=== PATIENT | male | born 1955 | race Caucasian/White ===

== ENCOUNTER 2016-11-16 12:00 | Emergency (ER) | payer BC ==
[2016-11-16 13:52] VITALS: BP 116/69
--- NOTE | 2016-11-16 14:04 | UC ---
Angela Mendoza SooYoung, scribed for [facility] on 11/16/16 at 1248 . Palpitation/Dysrhythmia HP - HPI Summary HPI Summary: NOTE: Pt presents with SVT arrhythmia, worse with movement. Vital signs stable. Pulse is 67, regular. No pain. Resting comfortably at 1305. Non-smoker. Hx: SVT, episodes of dizziness, appy in 2010. Pt is on no prescription medications. Pt has been examined with a holter monitor for palpitations on 11/08/16 showing few rungs of PSVT, max 5 beats. This complaint is shown in the visit hx on 05/29/12. On 10/14/12, NSR was shown with rare PACs and symptoms of flutter correspond to NSR, no sustained arrhym. IN ROOM NOTE: A 61 y/o M presents to [facility] with multiple episodes of rapid cardiac palpitations occurring this AM and yesterday. He states he was unable to stop it, it lasted 5 -10 minutes, and racing occurred again this AM. Pt states he's been careful to avoid strenuous activity, caffeine. Associated sx: mild BARRETT. Denies: syncope, LOC. Pert PMHx: Premature atrial contractions in 2012 possibly caused due to stress, sx then included mild lightheadedness. He states this time feels different. Between 2012 and now, he had a few episodes of racing palpitations. A few weeks ago, pt noticed he was having palpitations daily, described as "fluttering". Episodes lasting approx 5 mins to a few hours. Most often occurrs in the AM after waking and in the evening. Pt is seen by Dr. Pozo with Dr. Bravo. Pt had an echo two days ago, it showed enlarged septum in L ventricle; dilation; regurgitation in L ventricle. Dr Pozo did not put him on any medications. He has not yet been scheduled to see a principal data architect, he was told that if he experiences worsening sx to go ED. Pt is a computer repair engineer. NURSE'S NOTE: pt had a haulter monitor 2 weeks ago, ekg 2 weeks ago and echo 2 days ago. pt was told he had a dilation, regurgitation and something with a septum. pt states he has had increased hr over the past few days. pt states that he was told to bear down and cough. pt states he has also had fluttering feelings in his chest. pt was told to come in here if he experiences any issues over the weekend. [ End ] - History of Current Complaint Chief Complaint: UCCardiac Stated Complaint: RAPID HEARTBEAT Hx Obtained From: Patient Onset/Duration: Still Present Timing: Intermittent Episodes Lasting: - minutes to hours Pain Intensity: 0 Pain Scale Used: 0-10 Numeric Character: Fast, Fluttering - Allergy/Home Medications Allergies/Adverse Reactions: Allergies Allergy/AdvReac Type Severity Reaction Status Date / Time Codeine Allergy Nausea Verified 11/18/13 15:29 Levofloxacin [From Levaquin] Allergy joint Verified 11/18/13 15:29 pain, aches, "felt really sick" PMH/Surg Hx/FS Hx/Imm Hx Previously Healthy: No Endocrine History Of: Denies: Diabetes Cardiovascular History Of: Reports: Cardiac Disorders - rapid hr frequently today, awaiting dx with cardiology Denies: Hypertension, Pacemaker/ICD GI/ History Of: Denies: Renal Disease - Surgical History Surgical History: Yes Surgery Procedure, Year, and Place: APPENDECTOMY 2010 - Family History Known Family History: Negative: Cardiac Disease, Hypertension, Diabetes - Social History Occupation: Employed Full-time Lives: With Family Alcohol Use: Weekly Substance Use Type: None Smoking Status (MU): Never Smoked Tobacco Review of Systems Cardiovascular: Palpitations Neurological: Headache - mild All Other Systems Reviewed And Are Negative: Yes Physical Exam Triage Information Reviewed: Yes Appearance: Well-Appearing, No Pain Distress, Well-Nourished Vital Signs: Initial Vital Signs Temp 96.1 F 11/16/16 12:12 Pulse 67 11/16/16 12:12 Resp 18 11/16/16 12:12 BP 134/80 11/16/16 12:12 Vital Signs Reviewed: Yes Eyes: Positive: Conjunctiva Clear ENT: Positive: Hearing grossly normal, Pharynx normal, TMs normal. Negative: Muffled/hoarse voice Neck: Positive: Supple, No Lymphadenopathy Respiratory: Positive: Chest non-tender, Lungs clear, Normal breath sounds, No respiratory distress Cardiovascular: Positive: Other: - POS: IRR RATE. WATCHED MONITOR WHILE LISTENING TO PT'S HEART. SINUS ARRHYTHMIA, NOT FAST, HAS SOME RESPIRATORY VARIATION. WHEN PT LEANED FORWARD, I COULD HEAR A 1/6 SYS MURMUR, SOMEWHAT HARSH EJECTION, THIS WAS DECREASED WHEN PT SAT BACK. NO SUBJECTIVE FEELING OF CP , DIZZINESS, NAUSEA, DIAPHORESIS. Abdomen Description: Positive: Nontender, No Organomegaly, Soft. Negative: Peritoneal Signs Bowel Sounds: Positive: Present Musculoskeletal: Positive: Strength Intact, Other: - RODRÍGUEZ. Negative: Edema @ Neurological: Positive: Alert Psychological: Positive: Age Appropriate Behavior Skin: Negative: rashes Palpitations Course/Dx - Course Course Of Treatment: Three EKGs obtained at [facility], at 1209: NSR, 1 episode of paired PVCs, prolonged TN interval evident but is not new. At 1210: normal EKG without ectopy. At 1220: a singular episode of SVT bigeminy, otherwise normal EKG without ischemia. Orthostatic results at 1320 were normal. MDM: Pt was told to go to ED by PCP if he has repeat episode over weekend, he chose to come to [facility]. His episodes of palpitations began again 2-3 weeks ago, primarily in AM and evening. Palpitations have created anxiety or anxiety exacerbates condition. Could not find his results of his recent echo. It is significant that the pt does not faint, expierence CP, and is able to help the palpatations go away by vagal maneuvers. Pt plan is to be referred to principal data architect in two days. We talked about possible medicines that could control rapid heart rate. Pt feels comfortable going home today. We discussed absolute need to take ambulance to ED for new symptoms or if condition presents in new way. - Differential Dx/Diagnosis Differential Diagnosis/HQI/PQRI: Panic Disorder - arrythmia: atrial v. ventricular, Paroxymal SVT, Other Provider Diagnoses: SVT tachycardia, by history, no EKG evidence in [facility] care. Discharge - Discharge Plan Condition: Stable Disposition: HOME Patient Education Materials: Supraventricular Tachycardia (ED), Valsalva Maneuver (ED) Referrals: Felipe Ibarra MD [Primary Care Provider] - Additional Instructions: WE DISCUSSED: 1. Your symptoms require caution if they change, for example, you have chest pain, nausea/vomiting, sweating, fainting. GO TO ED. 2. You are probably having runs of superventricular tachycardia, but a Holter still needs to capture this rhythm. Medication can be given for this. 3. Rest, acetaminophen or ibuprofen; Benadryl for rest. Keep well hydrated. 4. See your physician as planned on Friday. 5. Call at any time with any questions or concerns. 6. GO TO ED FOR ANY WORSENING OF CONDITION OR IF YOU FEEL THAT YOUR CONDITION IS CHANGING. The documentation as recorded by the Angela dave SooYoung accurately reflects the service I personally performed and the decisions made by me, Florencio Rose MD.
== END 2016-11-16 14:03 | disposition home or self-care (01) ==
LOC: UCEAST 12:00
DX: I47.1 Supraventricular tachycardia (principal); Z88.1 Allergy status to other antibiotic agents; Z88.5 Allergy status to narcotic agent
CPT/HCPCS: 93005; 99212; G0463

== ENCOUNTER 2018-03-25 10:49 | Emergency (ER) | payer BC ==
[2018-03-25 14:38] LABS: ABS Basophils 0 10^3/ul (0-0.2); ABS Eosinophils 0.1 10^3/ul (0-0.6); ABS Lymphocytes 1.4 10^3/ul (1.0-4.8); ABS Monocytes 0.4 10^3/ul (0-0.8); ABS Neutrophils 3.9 10^3/ul (1.5-7.7); ABS Nucleated RBC 0 10^3/ul; Eosinophil % 1.3 % (0-6); Hematocrit 41 % (42-52); Hemoglobin 13.9 g/dl (14.0-18.0); Lymphocyte % 23.4 % (25-47); Mean Corpuscular HGB Conc 34 g/dl (31-36); Mean Corpuscular Hemoglobin 28 pg (27-31); Mean Corpuscular Volume 81 fL (80-94); Mean Platelet Volume 8.8 um3 (7.4-10.4); Nucleated Red Blood Cells % 0.1; Platelet Count 257 10^3/ul (150-450); Red Cell Distribution Width 15 % (10.5-15); White Blood Count 5.8 10^3/ul (3.5-10.8)
[2018-03-25 14:54] LABS: EGFR Non-African American 66.2 (>60)
--- NOTE | 2018-03-25 15:02 | ED ---
HPI Chest Pain - HPI Summary HPI Summary: This is Vicky dave, documenting for attending Apple Harris MD. This patient is a 62 year old M presenting to [facility] with a chief complaint of waxing and waning left chest pain described as pressure and heaviness for the past five days. Pain is 4/10 upon triage. Reports productive clear cough and swollen lower extremities. Denies diaphoresis, nausea, and SOB. Pt reports recent mitral valve sx on 11/24/17. Patient saw his PCP and Dr. Todd yesterday. Dr. Todd ruled out MS. However his PCP noted an elevated D-dimer and suggested he come to the ED. - History of Current Complaint Chief Complaint: EDChestWallPain Time Seen by Provider: 03/25/18 14:55 Hx Obtained From: Patient Onset/Duration: Started Days Ago, Still Present Timing: Constant Initial Severity: Mild Current Severity: Moderate Pain Intensity: 4 Pain Scale Used: 0-10 Numeric Chest Pain Location: Left Anterior Chest Pain Radiates: No Character: Cough, Productive, Heaviness, Pressure/Squeezing Aggravating Factor(s): Nothing Alleviating Factor(s): Nothing Associated Signs and Symptoms: Positive: Chest Pain, Swelling, Productive Cough. Negative: Shortness of Breath, Diaphoresis, Nausea Related History: Similar Episode/Dx as: - recent mitral valve sx - Allergy/Home Medications Allergies/Adverse Reactions: Allergies Allergy/AdvReac Type Severity Reaction Status Date / Time MS Quinolones [Quinolones] Allergy Unknown Unknown Verified 01/07/17 14:30 Reaction Details MS Codeine [Codeine] Allergy Nausea Verified 11/18/13 15:29 MS Levofloxacin Allergy joint Verified 11/18/13 15:29 [From Levaquin] pain, aches, "felt really sick" gluten Allergy Unknown Uncoded 01/07/17 14:30 Reaction Details Home Medications: Home Medications Aspirin EC TAB* [Ecotrin EC Low Dose 81 MG*] 81 mg PO DAILY 03/25/18 [History Confirmed 03/25/18] Famotidine [Pepcid AC] 20 mg PO QPM 03/25/18 [History Confirmed 03/25/18] Metoprolol Tartrate TAB* [Lopressor TAB*] 12.5 mg PO BID 03/25/18 [History Confirmed 07/18/18] PMH/Surg Hx/FS Hx/Imm Hx Endocrine/Hematology History: Denies: Hx Diabetes Cardiovascular History: Denies: Hx Hypertension, Hx Pacemaker/ICD History: Denies: Hx Dialysis, Hx Renal Disease Sensory History: Denies: Hx Hearing Aid Psychiatric History: Denies: Hx Panic Disorder - Surgical History Surgery Procedure, Year, and Place: APPENDECTOMY 2010. mitral valve replacemnt 2017 Infectious Disease History: No Infectious Disease History: Reports: Traveled Outside the in Last 30 Days - [place] - Family History Known Family History: Negative: Cardiac Disease, Hypertension, Diabetes - Social History Alcohol Use: Weekly Substance Use Type: Reports: None Smoking Status (MU): Never Smoked Tobacco Review of Systems Negative: Skin Diaphoresis Positive: Chest Pain Negative: Shortness Of Breath Negative: Nausea Positive: Edema - lower extremity All Other Systems Reviewed And Are Negative: Yes Physical Exam - Summary Physical Exam Summary: Appearance: Well-appearing, Well-nourished Skin: Warm Eyes: Normal ENT: Normal Neck: Supple, nontender Respiratory: Clear to auscultation Cardiovascular: Regular rate, regular rhythm. Normal S1, S2. Abdomen: Soft, nontender Musculoskeletal: Normal, Strength/ROM Intact Neurological: Normal, A&Ox3 Psychiatric: Normal General: No acute distress EXT- mild RLE >left, NEG Homann's sign Triage Information Reviewed: Yes Vital Signs On Initial Exam: Initial Vitals Temp Pulse Resp BP Pulse Ox 97.9 F 63 16 128/87 100 03/25/18 10:54 03/25/18 10:54 03/25/18 10:54 03/25/18 10:54 03/25/18 10:54 Vital Signs Reviewed: Yes Diagnostics - Vital Signs Vital Signs Temp Pulse Resp BP Pulse Ox 03/25/18 10:54 97.9 F 63 16 128/87 100 - Laboratory Lab Results: Lab Results 03/25/18 03/25/18 03/25/18 Range/Units 14:17 14:17 14:17 WBC 5.8 (3.5-10.8) 10^3/ul RBC 5.00 (4.00-5.40) 10^6/ul Hgb 13.9 L (14.0-18.0) g/dl Hct 41 L (42-52) % MCV 81 (80-94) fL MCH 28 (27-31) pg MCHC 34 (31-36) g/dl RDW 15 (10.5-15) % Plt Count 257 (150-450) 10^3/ul MPV 8.8 (7.4-10.4) um3 Neut % (Auto) 67.8 (38-83) % Lymph % (Auto) 23.4 L (25-47) % [place] % (Auto) 6.7 (0-7) % Eos % (Auto) 1.3 (0-6) % Baso % (Auto) 0.8 (0-2) % Absolute Neuts (auto) 3.9 (1.5-7.7) 10^3/ul Absolute Lymphs (auto) 1.4 (1.0-4.8) 10^3/ul Absolute Monos (auto) 0.4 (0-0.8) 10^3/ul Absolute Eos (auto) 0.1 (0-0.6) 10^3/ul Absolute Basos (auto) 0 (0-0.2) 10^3/ul Absolute Nucleated RBC 0 10^3/ul Nucleated RBC % 0.1 Sodium 139 (135-145) mmol/L Potassium 4.2 (3.5-5.0) mmol/L Chloride 106 (101-111) mmol/L Carbon Dioxide 27 (22-32) mmol/L Anion Gap 6 (2-11) mmol/L BUN 16 (6-24) mg/dL Creatinine 1.13 (0.67-1.17) mg/dL Est GFR ( Amer) 80.1 (>60) Est GFR (Non-Af Amer) 66.2 (>60) BUN/Creatinine Ratio 14.2 (8-20) Glucose 95 (70-100) mg/dL Lactic Acid 0.4 L (0.5-2.0) mmol/L Calcium 9.3 (8.6-10.3) mg/dL Total Bilirubin 1.40 H (0.2-1.0) mg/dL AST 14 (13-39) U/L ALT 14 (7-52) U/L Alkaline Phosphatase 69 (34-104) U/L Total Creatine Kinase 48 (10-223) U/L Troponin I 0.00 (<0.04) ng/mL B-Natriuretic Peptide ( - 100) pg/mL Total Protein 6.9 (6.4-8.9) g/dL Albumin 4.1 (3.2-5.2) g/dL Globulin 2.8 (2-4) g/dL Albumin/Globulin Ratio 1.5 (1-3) /18/18 Range/Units 14:17 WBC (3.5-10.8) 10^3/ul RBC (4.00-5.40) 10^6/ul Hgb (14.0-18.0) g/dl Hct (42-52) % MCV (80-94) fL MCH (27-31) pg MCHC (31-36) g/dl RDW (10.5-15) % Plt Count (150-450) 10^3/ul MPV (7.4-10.4) um3 Neut % (Auto) (38-83) % Lymph % (Auto) (25-47) % [place] % (Auto) (0-7) % Eos % (Auto) (0-6) % Baso % (Auto) (0-2) % Absolute Neuts (auto) (1.5-7.7) 10^3/ul Absolute Lymphs (auto) (1.0-4.8) 10^3/ul Absolute Monos (auto) (0-0.8) 10^3/ul Absolute Eos (auto) (0-0.6) 10^3/ul Absolute Basos (auto) (0-0.2) 10^3/ul Absolute Nucleated RBC 10^3/ul Nucleated RBC % Sodium (135-145) mmol/L Potassium (3.5-5.0) mmol/L Chloride (101-111) mmol/L Carbon Dioxide (22-32) mmol/L Anion Gap (2-11) mmol/L BUN (6-24) mg/dL Creatinine (0.67-1.17) mg/dL Est GFR ( Amer) (>60) Est GFR (Non-Af Amer) (>60) BUN/Creatinine Ratio (8-20) Glucose (70-100) mg/dL Lactic Acid (0.5-2.0) mmol/L Calcium (8.6-10.3) mg/dL Total Bilirubin (0.2-1.0) mg/dL AST (13-39) U/L ALT (7-52) U/L Alkaline Phosphatase (34-104) U/L Total Creatine Kinase (10-223) U/L Troponin I (<0.04) ng/mL B-Natriuretic Peptide 60 ( - 100) pg/mL Total Protein (6.4-8.9) g/dL Albumin (3.2-5.2) g/dL Globulin (2-4) g/dL Albumin/Globulin Ratio (1-3) Result Diagrams: 03/25/18 14:17 03/25/18 14:17 Lab Statement: Any lab studies that have been ordered have been reviewed, and results considered in the medical decision making process. - CT CHEST CTA CT Interpretation Completed By: Radiologist - 1. NO CT EVIDENCE OF ACUTE PULMONARY EMBOLIC DISEASE. 2. MULTIPLE LIVER LESIONS BETTER CHARACTERIZED ON EARLIER CONTRAST-ENHANCED IMAGING REMAIN MOST CONSISTENT WITH HEMANGIOMAS. ED Physician has reviewed this report. - EKG 1346 Cardiac Rate: Bradycardia - 56 BPM EKG Rhythm: Sinus Bradycardia EKG Interpretation: no STT changes or T wave inversions. Chest Pain Course/Dx - Course Course Of Treatment: Trop x 2 sets neg, labs unremarkable, pt had h/o of recent travel to [place] and his PCP sent pt to ED for midlyl elevated D-Dimer, CTA chest neg, RLE Doppler scheduled as outpt on 04/03 per pt. - Chest Pain Differential Diagnosis/HQI/PQRI: Acute MS, ACS, Angina, CHF, Chest Wall, GI Disease, Pulmonary Embolism - Diagnoses Provider Diagnoses: Elevated d-dimer, Chest pain at rest Discharge - Sign-Out/Discharge Documenting (check all that apply): Patient Departure - Discharge Plan Condition: Stable Disposition: HOME Patient Education Materials: Leg Pain (ED) Referrals: Felipe Ibarra MD [Primary Care Provider] - - Billing Disposition and Condition Condition: STABLE Disposition: Home
[2018-03-25] MEDS ORDERED: Iohexol 350* (CONTRAST) 500 ML MDV IV ONE (16:03)
--- NOTE | 2018-03-25 16:38 | RAD ---
INDICATION: Chest pain. Short of breath. Evaluate for pulmonary embolus. COMPARISON: Chest x-ray March 24, 2018; CT abdomen and pelvis March 12, 2012 TECHNIQUE: Axial source images were obtained from the thoracic inlet to the hemidiaphragms following administration of [address] angiographic technique was utilized. Coronal and sagittal reconstructed images were acquired. CHEST FINDINGS: Neck/thyroid: The visualized neck to include the thyroid appear normal. Chest wall: There are no acute abnormalities of the bony thorax or chest wall. There is no supraclavicular, infraclavicular, or axillary lymphadenopathy. Lungs : There are no pulmonary parenchymal masses or infiltrates. The pulmonary interstitium appears normal. There are no endobronchial lesions. Cardiomediastinal structures: There is no CT evidence of acute pulmonary embolic disease. The heart is normal in size. There is prior valvular surgery There is no pericardial effusion. There is no evidence of aortic aneurysm or dissection. There is no mediastinal or hilar adenopathy. The esophagus appears normal. Pleura : There are no pleural-based masses or effusions. Other: Limited views the upper abdomen show incompletely characterized hepatic lesions. Remote CT imaging has documented multiple hemangiomas. IMPRESSION: 1. NO CT EVIDENCE OF ACUTE PULMONARY EMBOLIC DISEASE. 2. MULTIPLE LIVER LESIONS BETTER CHARACTERIZED ON EARLIER CONTRAST-ENHANCED IMAGING REMAIN MOST CONSISTENT WITH HEMANGIOMAS.
[2018-03-25 18:53] VITALS: BP 117/78
== END 2018-03-25 18:51 | disposition home or self-care (01) ==
LOC: ED 10:49
DX: R07.89 Other chest pain (principal); R79.1 Abnormal coagulation profile; R05 Cough; R60.0 Localized edema; R00.1 Bradycardia, unspecified; K76.9 Liver disease, unspecified; Z95.2 Presence of prosthetic heart valve; Z79.82 Long term (current) use of aspirin; Z88.1 Allergy status to other antibiotic agents; Z88.5 Allergy status to narcotic agent; Z88.8 Allergy status to other drugs, medicaments and biological substances
CPT/HCPCS: 36415; 71275; 80053; 82550; 83605; 83880; 84484; 85025; 93005; 99282; Q9967

== ENCOUNTER 2024-04-10 10:07 | Observation (INO) ==
[2024-04-10] MEDS: Famotidine IV 10 MG/ML 2 ml VIAL (20 mg) IV SLOW PU ONE (12:31)
[2024-04-10] MEDS: Ondansetron 4 mg VIAL 2 MG/ML 2 ml VIAL IV ONE (12:32)
[2024-04-10] MEDS: NS 0.9% 1000 ml BAG 1,000 ML IV ONE (12:34)
[2024-04-10 12:46] LABS: ABS Basophils 0.1 10^3/uL (0.0-0.1); ABS Eosinophils 0.2 10^3/uL (0.0-0.5); ABS Lymphocytes 1.4 10^3/uL (1.0-4.8); ABS Monocytes 0.8 10^3/uL (0.0-1.1); ABS Neutrophils 5.6 10^3/uL (1.5-7.6); ABS Nucleated RBC 0.01 10^3/ul; Eosinophil % 2.9 %; Hematocrit 38.7 % (38-53); Mean Corpuscular Hgb Conc 33.7 g/dL (31-36); Mean Corpuscular Volume 77.3 fL (80-97); Mean Platelet Volume 8.5 fL (7.5-11.2); Nucleated Red Blood Cells % 0.1 %/100WBC (0.0-0.8); Platelet Count 551 10^3/uL (150-450); Red Cell Distribution Width 16.7 % (12-17)
[2024-04-10] MEDS: Morphine 4 MG/ML VIAL (1 ml) IV ONE (13:27)
[2024-04-10 13:29] LABS: Albumin 3.8 g/dL (3.2-5.2); Albumin/Globulin Ratio 1.4 (1-3); C Reactive Protein 113.99 mg/L (<8.01); Calcium 9.1 mg/dL (8.6-10.3); Creatinine, Serum 1.08 mg/dL (0.67-1.17); Globulin 2.8 g/dL (2-4); Total Bilirubin 1.1 mg/dL (0.2-1.0); Total Protein 6.6 g/dL (6.4-8.9); eGFR CKD-EPI 75.7 (>60)
[2024-04-10] MEDS: cefTRIAXone 1 gm/50 mL D5W 1 GM/50 ML BAG IV ONE (13:43)
[2024-04-10] MEDS: Iohexol 300 (CONTRAST) 10 ML SDV IV ONE (14:05)
[2024-04-10] MEDS: metroNIDAZOLE IV 500 MG/100ML 500 MG/100 ML BAG IVPB ONE (14:30)
[2024-04-10 14:50] LABS: Urine Appearance Clear; Urine Bilirubin Negative (Negative); Urine Blood Negative (Negative); Urine Color Yellow; Urine Glucose Negative (Negative); Urine Ketones Negative (Negative); Urine Nitrite Negative (Negative); Urine Protein Negative (Negative); Urine Specific Gravity 1.031 (1.002-1.030); Urine Urobilinogen Negative (Negative); Urine pH 5.5 (5.0-8.0)
[2024-04-10] MEDS ORDERED: Morphine 2 MG/ML SYRINGE IV PRN (17:10)
[2024-04-10] MEDS ORDERED: Ondansetron 4 mg VIAL 2 MG/ML 2 ml VIAL IV PRN (17:10)
[2024-04-10] MEDS: NS 0.9% 1000 ml BAG 1,000 ML IV SCH (19:32)
[2024-04-10] MEDS: Heparin 5000 UNITS/ML 1 mL VIAL SUBCUT SCH (21:38)
[2024-04-10] MEDS: metroNIDAZOLE IV 500 MG/100ML 500 MG/100 ML BAG IVPB SCH (21:38)
[2024-04-11 06:08] LABS: ABS Basophils 0.1 10^3/uL (0.0-0.1); ABS Eosinophils 0.3 10^3/uL (0.0-0.5); ABS Lymphocytes 1.7 10^3/uL (1.0-4.8); ABS Monocytes 0.7 10^3/uL (0.0-1.1); Eosinophil % 4.2 %; Hematocrit 33.6 % (38-53); Hemoglobin 11.6 g/dL (13.2-16.3); Lymphocyte % 24.9 %; Mean Corpuscular Hemoglobin 26.8 pg (27-33); Mean Corpuscular Hgb Conc 34.6 g/dL (31-36); Mean Corpuscular Volume 77.5 fL (80-97); Mean Platelet Volume 8.7 fL (7.5-11.2); Platelet Count 460 10^3/uL (150-450); Red Blood Count 4.34 10^6/uL (4.06-5.63); Red Cell Distribution Width 15.9 % (12-17); White Blood Count 6.9 10^3/uL (3.6-10.2)
[2024-04-11 06:28] LABS: Albumin 3.1 g/dL (3.2-5.2); Albumin/Globulin Ratio 1.4 (1-3); C Reactive Protein 61.42 mg/L (<8.01); Calcium 8.1 mg/dL (8.6-10.3); Creatinine, Serum 0.98 mg/dL (0.67-1.17); Globulin 2.2 g/dL (2-4); Potassium 4.5 mmol/L (3.5-5.0); Total Bilirubin 0.8 mg/dL (0.2-1.0); Total Protein 5.3 g/dL (6.4-8.9)
[2024-04-11] MEDS: CMCS: Riboflavin (B2) 100 mg TAB(NF) PO SCH (09:36)
[2024-04-11] MEDS: cefTRIAXone 1 gm/50 mL D5W 1 GM/50 ML BAG IV SCH (13:17)
[2024-04-12 06:51] LABS: Albumin 3.2 g/dL (3.2-5.2); Albumin/Globulin Ratio 1.5 (1-3); Calcium 8.2 mg/dL (8.6-10.3); Creatinine, Serum 1.13 mg/dL (0.67-1.17); Globulin 2.1 g/dL (2-4); Potassium 4.7 mmol/L (3.5-5.0); Total Bilirubin 0.5 mg/dL (0.2-1.0); Total Protein 5.3 g/dL (6.4-8.9); eGFR CKD-EPI 71.7 (>60)
[2024-04-12 08:11] LABS: Hematocrit 34.6 % (38-53); Hemoglobin 11.8 g/dL (13.2-16.3); Mean Corpuscular Hemoglobin 26.3 pg (27-33); Mean Corpuscular Hgb Conc 34.1 g/dL (31-36); Mean Corpuscular Volume 77.2 fL (80-97); Mean Platelet Volume 8.6 fL (7.5-11.2); Platelet Count 549 10^3/uL (150-450); Red Blood Count 4.47 10^6/uL (4.06-5.63); Red Cell Distribution Width 16.4 % (12-17); White Blood Count 7.5 10^3/uL (3.6-10.2)
[2024-04-12] MEDS ORDERED: cefTRIAXone 1 gm/50 mL D5W 1 GM/50 ML BAG IV ONE (14:18)
[2024-04-12] MEDS ORDERED: Metoclopramide 5 MG/ML VIAL (10 mg) IV PRN (14:20)
[2024-04-12] MEDS ORDERED: fentaNYL 100 mcg/2 ml 50 MCG/ML VIAL IV PRN (14:20)
[2024-04-12] MEDS ORDERED: Naloxone 0.4 mg VIAL 0.4 mg/ml 1 ml VIAL IV PRN (14:20)
[2024-04-12] MEDS ORDERED: Ondansetron 4 mg VIAL 2 MG/ML 2 ml VIAL IV PRN (14:20)
[2024-04-12] MEDS ORDERED: Dexamethasone IV 4 MG/ML VIAL 1 ml VIAL ONE (14:48)
[2024-04-12] MEDS ORDERED: Lidocaine 2% PF 5 ML VIAL ONE (14:48)
[2024-04-12] MEDS ORDERED: fentaNYL 100 mcg/2 ml 50 MCG/ML VIAL ONE ×2 (14:49→16:37)
[2024-04-12] MEDS ORDERED: Midazolam 2 mg/2 ml VIAL 1 mg/ml 2 ml VIAL (2 mg) ONE ×2 (14:49→15:39)
[2024-04-12] MEDS ORDERED: Ondansetron 4 mg VIAL 2 MG/ML 2 ml VIAL ONE ×2 (14:50→17:25)
[2024-04-12] MEDS ORDERED: Bupivacaine 0.25% EPI 200,000 30 ML SDV ONE (14:53)
[2024-04-12] MEDS ORDERED: Rocuronium 50 mg VIAL 10 mg/ml 5 ml VIAL (50 mg) ONE (14:57)
[2024-04-12] MEDS ORDERED: NS 0.45% 1000 ml BAG 1,000 ML IV SCH (15:00)
[2024-04-12] MEDS ORDERED: metroNIDAZOLE IV 500 MG/100ML 500 MG/100 ML BAG ONE (15:35)
[2024-04-12] MEDS ORDERED: Glycopyrrolate IV 0.2 MG/ML 1 ML VIAL ONE (15:54)
[2024-04-12] MEDS: Scopolamine 1 mg/72hr PATCH TRANSDERM ONE (20:33)
[2024-04-12] MEDS: Acetaminophen IV 1 GM/100ML 1,000 MG/100 ML BAG IV ONE (20:35)
[2024-04-12] MEDS: Buffered Lidocaine 1% SYRIN 1 ml INTRADERM ONE (20:36)
[2024-04-12] MEDS: Lactated Ringers 1000 ml BAG 1,000 ML IV SCH (20:36)
[2024-04-13 13:55] VITALS: BP 93/59
== END 2024-04-13 15:10 | disposition home or self-care (01) ==
LOC: ED 10:07 → EDHOLD 10:07 → SUATTDRO 16:42 → SSU 16:47
PROVIDERS: ADMIT Internal Medicine; ATTEND Internal Medicine